=== PATIENT | male | born 1995 | race African-American/Black ===

== ENCOUNTER 2017-12-13 15:45 | Emergency (ER) | payer OTHER ==
[~2017-12-13] VITALS: Ht 167.6 cm; Wt 63.5 kg
[2017-12-13 15:57] VITALS: BP 153/82
== END 2017-12-13 16:47 | disposition admitted as inpatient to this hospital (09) ==
LOC: ERH 15:45
DX: R21 Rash and other nonspecific skin eruption (principal)